=== PATIENT | male | born 1980 | race Caucasian/White ===

== ENCOUNTER 2021-05-15 10:23 | Outpatient (RCR) | payer OTHER | END 2021-06-08 | disposition home or self-care (01) | LOC: WSOH | DX: M25.562 Pain in left knee (principal); K40.90 Unilateral inguinal hernia, without obstruction or gangrene, not specified as recurrent; Y99.0 Civilian activity done for income or pay ==

== ENCOUNTER 2021-06-12 08:38 | Outpatient (RCR) | payer OTHER | END 2021-07-09 | disposition home or self-care (01) | LOC: WSOH | DX: S83.32XD Tear of articular cartilage of left knee, current, subsequent encounter (principal); K40.90 Unilateral inguinal hernia, without obstruction or gangrene, not specified as recurrent; Z98.890 Other specified postprocedural states; Y99.0 Civilian activity done for income or pay ==

== ENCOUNTER 2022-06-18 05:36 | Day surgery (SDC) | payer OTHER ==
[~2022-06-18] VITALS: Ht 180.3 cm; Wt 73.4 kg
[2022-06-18] VITALS (7 sets, daily range): BP systolic 90–132; BP diastolic 56–73; PULSE 58–87; TEMP 97–97.5
[2022-06-18] MEDS ORDERED: NORCO 325 MG-51 TAB PO (08:52)
--- NOTE | 2022-06-18 11:03 | NUR ---
0915: PATIENT TO BAY 7 PER CART FROM PACU. REPORT RECEIVED FROM LEGISLATIVE ANALYST. VS OBTAINED. VS STABLE. BREATHING EVEN AND UNLABORED. PATIENT ALERT AND ORIENTED. PATIENT TEARY EYED STATING HE WAS HAPPY HE HAS THE PROCEDURE. 3 BANDAIDS NOTED ON PATIENTS ABDOMEN. DRESSING C/D/I. SCROTAL SUPPORT IN PLACE. PATIENT RATING PAIN AT 1/10 AND DENIES ANY NAUSEA AT THIS TIME. PATIENT TOLERATING WATER WELL. DOES NOT WANT TO TRY ANYTHING TO EAT AT THIS TIME. PATIENT DENIES ANY NEEDS AT THIS TIME. RESTING IN COT. RAILS UP. CALL LIGHT IN REACH. AT BEDSIDE. 0930: PATIENT CONTINUES TO TOLERATE WATER. REQUESTING SALTINE CRACKERS AT THIS TIME. PATIENT REMAINS ALERT AND ORIENTED AND VS REMAIN STABLE. PATIENT CONTINUES TO RATE HIS PAIN 1/10. DENIES NAUSEA. RESTING IN COT. RAILS UP. CALL LIGHT IN REACH. 0945: PATIENT TOLERATING SALTINE CRACKERS. PATIENT REMAINS ALERT AND ORIENTED. VS REMAIN STABLE. PATIENT CONTINUES TO RATE HIS PAIN 1/10. DENIES NAUSEA. RESTING IN COT. RAILS UP. CALL LIGHT IN REACH. REMAINS AT BEDSIDE. 1000: PATIENT REMAINS ALERT AND ORIENTED. CONTINUES TO RATE HIS PAIN 1/10. CONTINUE TO DENIES NAUSEA. RESTING IN COT. RAILS UP. CALL LIGHT IN REACH. AT BEDSIDE. 1015: PATIENT REMAINS ALERT AND ORIENTED. CONTINUES TO RATE PAIN 1/10. DENIES NAUSEA. RESTING IN COT. RAILS UP. CALL LIGHT IN REACH. AT BEDSIDE. 1030: DISCHARGE EDUCATION COMPLETED. PATIENT STATED UNDERSTANDING OF HOME AND FOLLOW-UP CARE. DISCHARGE PAPERWORK GIVEN TO PATIENT'S . PATIENT IV DC'D AT THIS TIME. PATIENT AMBULATED TO BATHROOM X2 ASSIST WITH SLOW STEADY GAIT. PATIENT STATED HE URINATED. 3 ABDOMINAL DRESSINGS REMAIM C/D/I. PATIENT'S ASSISTING WITH DRESSING. 1050: PATIENT AMBULATED TO WHEELCHAIR WITH STEADY GAIT. PATIENT OFF UNIT PER WHEELCHAIR. PATIENT DISCHARGED TO HOME WITH PER PERSONAL VEHICLE.
== END 2022-06-18 10:50 | disposition home or self-care (01) ==
LOC: SDCO 05:36
DX: K40.20 Bilateral inguinal hernia, without obstruction or gangrene, not specified as recurrent (principal)
CPT/HCPCS: C1781; J0690; J1100; J1885; J2405; J2704; J3010; J7120

== ENCOUNTER 2023-08-05 08:07 | Outpatient (RCR) | payer OTHER ==
[~2023-08-05 08:07] MED LIST: NORCO 325 MG-51 TAB PO
== END 2023-08-09 | disposition home or self-care (01) ==
LOC: WSST
DX: J38.1 Polyp of vocal cord and larynx (principal)

== ENCOUNTER 2023-09-02 14:00 | Outpatient (RCR) | payer OTHER | END 2023-09-09 | disposition home or self-care (01) | LOC: WSST | DX: J38.1 Polyp of vocal cord and larynx (principal) ==